=== PATIENT | male | born 1995 | race Caucasian/White ===

== ENCOUNTER 2021-09-22 22:43 | Emergency (ER) | payer OTHER ==
[2021-09-22 22:50] VITALS: BP 132/91; PULSE 121; TEMP 98.3; BMI 20.8
== END 2021-09-22 23:57 | disposition home or self-care (01) ==
LOC: JER 22:43
DX: R05.9 Cough, unspecified (principal)
CPT/HCPCS: 99283-25; C9803; U0003; U0005